=== PATIENT | female | born 2000 | race African-American/Black ===

== ENCOUNTER 2021-04-25 17:26 | Emergency (ER) | payer BC ==
[2021-04-25 17:40] VITALS: BP 115/66; PULSE 70; TEMP 98.9; BMI 26.5
[2021-04-25] MEDS ORDERED: LACTATED RINGERS SOLUTION 1000 ML INFUS.BAG IV ONE (18:39)
[2021-04-25] MEDS ORDERED: ACETAMINOPHEN 1000 MG/100 ML VIAL IVPB ONE (18:40)
[2021-04-25] MEDS ORDERED: ACETAMINOPHEN INJECTION 100 ML IVPB ONE (18:49)
[2021-04-25 19:01] LABS: BASO % 0.7 % (0-2.0); EOS % 0.7 % (0-4.5); HEMATOCRIT 34.7 % (32.4-45.2); HEMOGLOBIN 10.8 GM/dL (10.7-15.3); LYMPH % 20.4 % (8-40); MCH 23.6 pg (25.7-33.7); MCHC 31.2 g/dl (32.0-36.0); MEAN CELL VOLUME 75.4 fl (80-96); MEAN PLT VOLUME 7.1 fl (7.5-11.1); NEUT % 73.2 % (42.8-82.8); PLATELET COUNT 458 10^3/uL (134-434); RDW 17.1 % (11.6-15.6); WHITE BLOOD COUNT 8.7 K/mm3 (4.0-10.0)
[2021-04-25 19:20] LABS: CHLORIDE 104 mmol/L (98-107); SODIUM 138 mmol/L (136-145)
[2021-04-25 19:23] LABS: ALBUMIN 4.4 g/dl (3.4-5.0); ANION GAP 10 MMOL/L (8-16); BLOOD UREA NITROGEN 7.8 mg/dL (7-18); CO2 23 mmol/L (21-32); GLUCOSE,RANDOM 89 mg/dL (74-106); MAGNESIUM 1.8 mg/dL (1.8-2.4)
[2021-04-25 19:26] LABS: CREATININE 0.6 mg/dL (0.55-1.3); SGOT/AST 23 U/L (15-37); SGPT/ALT 33 U/L (13-61)
[2021-04-25 19:27] LABS: BILIRUBIN,TOTAL 0.4 mg/dL (0.2-1)
[2021-04-25 19:29] LABS: ALK PHOS 85 U/L (45-117)
[2021-04-25] MEDS ORDERED: MAGNESIUM SULF 50% (8.12 MEQ/2 ML-1 GM VIAL) IVPB ONE (19:38)
[2021-04-25] MEDS ORDERED: MAGNESIUM SULFATE IN WATER 2 GM/50 ML IVPB IVPB ONE (20:05)
== END 2021-04-25 21:13 | disposition home or self-care (01) ==
LOC: JER 17:26
PROC: 3E033NZ Introduction of Analgesics, Hypnotics, Sedatives into Peripheral Vein, Percutaneous Approach (ICD-10-PCS; principal; 2021-04-25)
PROC: 3E033GC Introduction of Other Therapeutic Substance into Peripheral Vein, Percutaneous Approach (ICD-10-PCS; 2021-04-25)
DX: R55 Syncope and collapse (principal)
CPT/HCPCS: 36415; 80053; 82550; 82962; 83735; 84436; 84439; 84443; 84484; 84703; 85025; 93005; 93010; 99284-25; J0131

== ENCOUNTER 2022-09-30 03:06 | Emergency (ER) | payer BC, OTHER ==
[2022-09-30 03:16] VITALS: BP 125/87; PULSE 88; RESP 16; TEMP 98.2; BMI 26.5
[2022-09-30] MEDS ORDERED: FAMOTIDINE 20 MG/50 ML IVPB 20 MG/50 ML MG IVPB ONE ×2 (03:24→03:32)
[2022-09-30] MEDS ORDERED: methylPREDNISolone NA SUCC 125 MG/2 ML VIAL IVPUSH ONE (03:24)
[2022-09-30] MEDS ORDERED: SODIUM CHLORIDE 0.9% 500 ML INFUS.BAG IV ONE (03:24)
[2022-09-30] MEDS ORDERED: methylPREDNISolone NA SUCC 125 MG/2 ML VIAL ONE (03:32)
== END 2022-09-30 06:41 | disposition home or self-care (01) ==
LOC: JER 03:06
PROC: 3E033GC Introduction of Other Therapeutic Substance into Peripheral Vein, Percutaneous Approach (ICD-10-PCS; principal; 2022-09-30)
PROC: 3E033NZ Introduction of Analgesics, Hypnotics, Sedatives into Peripheral Vein, Percutaneous Approach (ICD-10-PCS; 2022-09-30)
PROC: 3E033GC Introduction of Other Therapeutic Substance into Peripheral Vein, Percutaneous Approach (ICD-10-PCS; 2022-09-30)
DX: T78.40XA Allergy, unspecified, initial encounter (principal)
CPT/HCPCS: 99284-25